=== PATIENT | male | born 1995 | race African-American/Black ===

== ENCOUNTER 2021-10-31 09:27 | Emergency (ER) | payer SELFPAY ==
[~2021-10-31] VITALS: Ht 188 cm; Wt 81.6 kg
[2021-10-31] MEDS ORDERED: CEFTRIAXONE 1 GM VIAL ONE (10:09)
[2021-10-31] MEDS ORDERED: AUGMENTIN 500-1 EACH PO (10:16)
[2021-10-31] MEDS ORDERED: CEFTRIAXONE 1 GM VIAL IM ONE (10:30)
== END 2021-10-31 10:41 | disposition home or self-care (01) ==
LOC: FSED 09:45
DX: J01.90 Acute sinusitis, unspecified (principal)
CPT/HCPCS: 99282; J0696

== ENCOUNTER 2021-11-28 11:44 | Emergency (ER) | payer SELFPAY ==
[~2021-11-28] VITALS: Ht 188 cm; Wt 81.6 kg
[~2021-11-28 11:44] MED LIST: AUGMENTIN 500-1 EACH PO
[2021-11-28] MEDS ORDERED: PREDNISONE20 MG PO (14:39)
[2021-11-28] MEDS ORDERED: FLONASE ALLERG9.9 ML INH (14:40)
[2021-11-28] MEDS ORDERED: CETIRIZINE HCL10 MG PO (14:43)
== END 2021-11-28 14:59 | disposition home or self-care (01) ==
LOC: FSED 11:58
DX: R09.81 Nasal congestion (principal); J31.0 Chronic rhinitis
CPT/HCPCS: 70486; 71046; 99283